=== PATIENT | male | born 1955 | race Caucasian/White ===

== ENCOUNTER 2018-11-08 11:36 | Emergency (ER) | payer OTHER ==
[~2018-11-08] VITALS: Ht 182.9 cm; Wt 81.8 kg
[2018-11-08 11:50] VITALS: TEMP 98
[2018-11-08] MEDS ORDERED: ZOVIRAX800 MG PO (13:02)
[2018-11-08] MEDS ORDERED: PREDNISONE20 MG PO (13:05)
[2018-11-08 13:08] VITALS: BP 154/91; PULSE 65
== END 2018-11-08 13:16 | disposition home or self-care (01) ==
LOC: COL.ER 11:36
DX: G51.0 Bell's palsy (principal)

== ENCOUNTER 2021-07-18 09:18 | Emergency (ER) | payer OTHER, MEDICARE ==
[~2021-07-18] VITALS: Ht 182.9 cm; Wt 81.8 kg
[~2021-07-18 09:18] MED LIST: PREDNISONE20 MG PO; ZOVIRAX800 MG PO
[2021-07-18 09:31] VITALS: TEMP 98.7
[2021-07-18] MEDS ORDERED: NORCO 325 MG-51 TAB PO ×3 (09:48→11:12)
[2021-07-18] MEDS ORDERED: ZOVIRAX800 MG PO (09:50)
[2021-07-18] MEDS ORDERED: PREDNISONE20 MG PO (09:50)
[2021-07-18 10:21] VITALS: BP 158/98; PULSE 80
== END 2021-07-18 10:24 | disposition home or self-care (01) ==
LOC: COL.ER 09:18
DX: B02.9 Zoster without complications (principal)
CPT/HCPCS: J7512

== ENCOUNTER 2022-10-07 09:20 | Day surgery (SDC) | payer MEDICARE, OTHER ==
[~2022-10-07] VITALS: Ht 182.9 cm; Wt 88.8 kg
[~2022-10-07 09:20] MED LIST changes: +NORCO 325 MG-51 TAB PO
[2022-10-07 09:51] VITALS: BP 141/99; PULSE 86; TEMP 96.6
[2022-10-07 11:25] VITALS: BP 109/77; PULSE 88; TEMP 97.1
[2022-10-07 11:40] VITALS: BP 137/92; PULSE 84
[2022-10-07 11:55] VITALS: BP 144/88; PULSE 80
--- NOTE | 2022-10-07 12:05 | NUR ---
1125 RETURNS TO ROOM 6 PER CART. AWAKE, ALERT. RESP UNLABORED. AMBULATES TO RECLINER WITH STAND BY ASSIST. DENIES NAUSEA OR ABD PAIN. VITAL SIGNS OBTAINED. CALL LIGHT AT SIDE. 1140 DISCHARGE INSTRUCTIONS REVIEWED. PATIENT VERBALIZES UNDERSTANDING. COPY PROVIDED IN DISCHARGE FOLDER. 1145 TOLERATES PO WATER AND MUFFIN WITHOUT NAUSEA 1156 DR. HODGSON HERE TO VISIT WITH PATIENT 1202 DRESSES SELF
== END 2022-10-07 12:06 | disposition home or self-care (01) ==
LOC: SDCO 09:20
DX: Z12.11 Encounter for screening for malignant neoplasm of colon (principal); D12.0 Benign neoplasm of cecum; D12.8 Benign neoplasm of rectum
CPT/HCPCS: J2704; J7120